=== PATIENT | female | born 1955 | race Caucasian/White ===

== ENCOUNTER → 2016-06-29 | Outpatient (CLI) | payer BC | END | disposition home or self-care (01) | LOC: LABWHC1 15:29 | PROVIDERS: ATTEND Orthopaedic Surgery | DX: Z01.812 Encounter for preprocedural laboratory examination (principal) | CPT/HCPCS: 87070 ==

== ENCOUNTER 2016-07-18 08:36 | Inpatient (IN) | payer BC ==
[2016-07-11 14:20] VITALS: BMI 28.8
--- NOTE | 2016-07-17 16:00 | HP ---
DATE OF ADMISSION: CHIEF COMPLAINT: Left knee pain. HISTORY OF PRESENT ILLNESS: The patient is a 60-year-old retired female who presents with progressive left knee pain secondary to osteoarthrosis despite conservative measures. He is having pain with weight-bearing activities that limit her. She has tried previous injections along with medications. PAST MEDICAL HISTORY: Significant for hypertension. CURRENT MEDICATIONS: Norvasc. She denies drug allergies. PAST SURGICAL HISTORY: Significant for previous hand surgery. FAMILY HISTORY: Significant for heart disease and cancer. SOCIAL HISTORY: Negative for current tobacco or alcohol use. Sixteen-point review of systems otherwise reviewed and is noncontributory. On examination, the patient is approximately 5 foot 7, 180 pounds of endomorphic habitus. HEENT exam is nonfocal. Neck is supple. She has painless passive motion of her left hip. Active motion left knee, -6 to 95 degrees of flexion. She is tender about the medial joint line. She has mild effusion. Collaterals are stable, Mehran's negative, Olga's is equivocal. She has genu varum alignment. Her distal neurovascular exam appears be intact in the left lower extremity. Weight-bearing notch, lateral, and merchant views of the left knee obtained in the office show severe medial and patellofemoral compartment osteoarthrosis. IMPRESSION: 1. Left knee severe medial and patellofemoral compartment osteoarthrosis. 2. Hypertension. RECOMMENDATIONS: I talked to the patient at length regarding her treatment options. At this point, she remains quite symptomatic despite conservative measures. After thorough discussion, she opts to proceed with surgery. We will plan to proceed with left total knee arthroplasty. We will institute DVT prophylaxis postoperatively. Patient underwent preoperative medical evaluation by Dr. Bojorquez.
[~2016-07-18 08:36] MED LIST: ACETAMINOPHEN TAB 500 MG TAB PO ONE; DEXAMETHASONE SOD PHOSPHATE 10 MG/ML 1 ML VIAL IV ONE; HYDROmorphone 1 MG/ML 1 ML SYRINGE IVP PRN; LIDOCAINE 1% 20 ML VIAL (10MG/ML) FOR IV START INTRADERMA PRN; MELOXICAM 7.5 MG TAB PO ONE; MIDAZOLAM 2 MG/2 ML VIAL IV PRN; ONDANSETRON 4 MG/2 ML VIAL IVP ONE; SCOPOLAMINE 1.5MG/72HR PATCH TRANSDERM ONE; TRANEXAMIC ACID 1,000 MG in SODIUM CHLORIDE 0.9% 100 ML IVPB ONE; ceFAZolin 2 GM in SODIUM CHLORIDE 0.9% 100 ML IVPB ONE; fentaNYL (PF) 50 MCG/ML 20 ML VIAL IVP PRN
[2016-07-18] MEDS: LACTATED RINGERS 1,000 ML IV SCH ×2 (09:24→21:16)
[2016-07-18] MEDS ORDERED: ROPIVACAINE 246.25 MG, EPINEPHrine 0.5 MG, KETOROLAC 30 MG, cloNIDine HCL/PF 80 MCG, WA... MISCELLANE ONE ×5 (10:18)
[2016-07-18] MEDS ORDERED: fentaNYL (PF) 50 MCG/ML 2 ML AMP ONE (10:25)
[2016-07-18] MEDS ORDERED: PHENYLEPHRINE-0.9% NACL SYG 1 MG/10 ML SYRINGE ONE (10:25)
[2016-07-18] MEDS ORDERED: MIDAZOLAM 2 MG/2 ML VIAL ONE (10:25)
[2016-07-18] MEDS ORDERED: PROPOFOL 10 MG/ML 20 ML VIAL IV ONE (10:25)
[2016-07-18] MEDS ORDERED: SODIUM CHLORIDE 0.9% 100 ML BAG ONE (10:25)
[2016-07-18] MEDS ORDERED: ceFAZolin 3,000 MG in SODIUM CHLORIDE 0.9% IRRIGATIO 3,000 ML IRRIGATION ONE (10:25)
[2016-07-18] MEDS ORDERED: TRANEXAMIC ACID 1,000 MG/10 ML VIAL ONE (10:25)
[2016-07-18] MEDS ORDERED: LACTATED RINGERS 1,000 ML IV ONE (11:30)
[2016-07-18] MEDS ORDERED: HYDROmorphone 1 MG/ML 1 ML SYRINGE IVP PRN ×2 (12:30)
[2016-07-18] MEDS ORDERED: HYDROcodone/APAP 5-325MG 1 EACH TAB PO PRN ×2 (12:30)
[2016-07-18] MEDS ORDERED: MAGNESIUM HYDROXIDE 2,400 MG/10 ML CUP PO PRN (12:30)
[2016-07-18] MEDS ORDERED: NALOXONE 0.4 MG/ML 1 ML VIAL IV PRN (12:30)
[2016-07-18] MEDS ORDERED: ONDANSETRON 4 MG/2 ML VIAL IVP PRN (12:30)
[2016-07-18] MEDS ORDERED: hydrOXYzine PAMOATE 25 MG CAP PO PRN (12:30)
--- NOTE | 2016-07-18 12:59 | P.OP ---
Date of Procedure: 07/18/16 Preoperative Diagnosis: Severe left knee tricompartmental osteoarthrosis-primary Postoperative Diagnosis: Same Procedure(s) Performed: Left total knee arthroplastycemented/posterior stabilized Implants: Depuy Attune size 7 cemented posterior stabilized femoral component, size 6 cemented tibial component, 10 mm articular surface, 35 mm cemented patellar component. Anesthesia: regional, local, spinal Surgeon: Kyler Altamirano Sales Account Director #1: Bruce Clark Estimated Blood Loss (ml): 75 Pathology: other (Bone fragments) Condition: stable Disposition: PACU Indications for Procedure: The patient's a 60-year-old female who presents with progressive left knee pain secondary to osteoarthrosis despite conservative measures. A discussion of the risks and benefits of operative intervention versus continued conservative measures was made with the patient. She opted to proceed with surgery. Operative risks to include infection, neurovascular injury, development of blood clots, possible component loosening, possible component failure need for subsequent procedures was discussed. Informed consent was obtained. Operative Findings: As below Description of Procedure: The patient was brought to the operating room, and after induction of spinal anesthesia the left lower extremity was prepped and draped in a normal fashion. The tourniquet was inflated to 270 mmHg. A longitudinal incision extending 3 finger breaths above the superior pole of patella extending to the medial aspect the tibial tubercle was then made. The skin and subcu tissues were divided sharply. Electrocautery was used for hemostasis. A medial parapatellar arthrotomy was performed. The medial soft tissues to include the superficial and deep portions the medial collateral ligament as well as the medial hamstring tendons were elevated subperiosteally. The proximal medial tibial osteophytes were carefully removed. The posterior medial capsule was also elevated. The patella was everted. The knee was then flexed. A portion of the retropatellar fat pad was excised sharply. The anterior cruciate ligament was sacrificed. A starting hole was made in the distal femur 1 cm anterior to the posterior cruciate ligament origin. An intramedullary femoral guide was then gently inserted planning on 5 valgus distal cut with 9 mm distal resection. The cutting block was pinned in place. The distal cut was then made. The posterior referencing sizing guide was utilized. A felt size 7 was most appropriate. 3 of external rotation was built into the system and verified off the trans-epicondylar axis and the posterior condyles. The cutting block was pinned in place. The anterior, posterior, and chamfer cuts were made. The bone fragments were then removed. I planned on a posterior stabilized implant as she did have significant deformity. The box cut was then made with a reciprocating saw. The bone fragment was removed. The trial femoral component was placed and was fully seated. There is good anterior to posterior and medial to lateral fit. The distal peg holes were drilled. The trial component was then removed. Attention was then paid towards preparing the proximal tibia. An extra medullary guide was then utilized in line with the tibial shaft and second metatarsal distally. I utilized a 0 posterior slope cutting block. I planned on 1 mm resection from the medial compartment. The cutting block was pinned in place. The proximal tibial cut was made protecting the posterior soft tissues. The bone was removed in one fragment. The tibia sized most appropriate size 6. The trial femoral and tibial components were placed. I was tight medially, therefore soft tissues were elevated posterior and medially. I did piecrust a portion of the medial collateral ligament. The trial femoral and tibial components were then placed with a 10 mm articular surface. I was able to obtain full flexion and extension with good stability with varus and valgus stress. After several flexion and extension cycles the tibial rotation was marked in line with the medial one third of the tibial tubercle. Attention was then paid towards preparing the patella. A patella reamer was utilized taking this down to 14 mm of bone stock. A good flush cut was made. The patella sized most probably a 35 mm. The peg holes were drilled. The trial components placed. The knee was taken through range of motion. I had good patellofemoral tracking with no hands technique. The trial components were then removed. The flexion and extension gaps were checked and felt to be symmetric. The tibia was prepared in the appropriate rotation with appropriate drill and keel punch. The posterior osteophytes of the distal femur were carefully removed with a curved osteotome. The remnants the medial lateral menisci were excised at the capsular junction with electrocautery. The posterior soft tissues were then injected with ropivacaine. Several additional drill holes were made in the proximal medial tibia to facilitate cement interdigitation. The bony surfaces were prepared with pulsatile lavage and dried. The tibial component was then cemented in place and was fully seated. Excess cement was removed. The femoral component was cemented in placed and was fully seated. Excess cement was removed. The trial 10 mm articular surface was placed and the knee was put in full extension. The patella component was cemented in place and excess cement was removed. After the cement had sufficiently hardened, the knee was again taken through range of motion. Again I was able to obtain full flexion and extension with good stability with varus and valgus stress. The trial articular surface was removed and the final one inserted. This was fully seated. Care was taken to avoid any soft tissue interposition. Pulsatile lavage was again utilized. The medial parapatellar arthrotomy was closed with # 2 Ethibond suture. A deep drain was placed exiting laterally. The tourniquet was deflated with approximately 80 minutes total tourniquet time. Final hemostasis was obtained with electrocautery. The subcutaneous tissues were reapproximated with interrupted 2-0 Vicryl sutures. The skin was reapproximated with 3-0 subcuticular strata fix suture. Skin tape and adhesive was applied. A sterile dressing was applied. The patient was awoken from sedation and transferred to the recovery room in good condition. Blood loss was estimated at 75 mL. No complications were incurred. Sponge and needle counts were correct at the end the case.
[2016-07-18] MEDS ORDERED: ROPIVACAINE 1,100 MG, SODIUM CHLORIDE 0.9% 330 ML MISCELLANE PRN ×2 (13:07)
--- NOTE | 2016-07-18 13:22 | XR ---
EXAMINATION TYPE: XR knee limited LT DATE OF EXAM: 07/18/2016 1:16 PM COMPARISON: NONE TECHNIQUE: Two view submitted HISTORY: Post op FINDINGS: There is a prosthetic knee in near anatomic alignment. There is soft tissue edema and emphysema. Toscano rgical drain noted. IMPRESSION: 1. Postoperative change. Appears in near-anatomic alignment
--- NOTE | 2016-07-18 13:29 | P.ONQ ---
Anesthesiology Proc Note - PNB - Peripheral Nerve Block Performed Left Adductor Canal Infusion Time Out Performed: Yes Procedure Start Time: 09:47 Procedure Stop Time: 10:00 Indication: Acute Post-Operative Pain, Requested by physician Sedation Type: Sedate with meaningful contact maintained Preparation: Sterile Dressing Position: Supine Catheter: Indwelling Needle Types: Other (see comment) (pajunk) Needle Size: 100mm (4") Needle Gauge: 21 Technique: Ultrasound Injectate: 0.5% Ropivacaine (see comment for volume) (ropi.5% 20cc) Blood Aspirated: No Pain Paresthesia on Injection Noted: No Resistance on Injection: Normal Events: Uneventful and Well Tolerated
[2016-07-18] MEDS: traMADol 50 MG TAB PO SCH ×3 (13:45→21:17)
--- NOTE | 2016-07-18 14:52 | P.CONS ---
History of Present Illness - Reason for Consult Consult date: 07/18/16 Medical management Requesting physician: Kyler Altamiraon - Chief Complaint Post left total knee arthroplasty - History of Present Illness This is a 60-year-old female one of Dr. 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 Patient sitting up in bed in no apparent distress she denies any chest pain, shortness breath, she has no abdominal pain, nausea, vomiting, or diarrhea. Review of Systems Constitutional: Denies anorexia, Denies chronic headaches, Denies chronic pain, Denies fever, Denies lethargy, Denies sweats, Denies weakness, Denies weight gain Eyes: denies blurred vision, denies bulging eye, denies decreased vision Ears: deny: decreased hearing Ears, nose, mouth and throat: Denies dysphagia, Denies neck lump, Denies swelling in throat Breasts: absent: change in shape Cardiovascular: Reports high blood pressure, Denies chest pain, Denies decreased exercise tolerance, Denies dyspnea on exertion, Denies phlebitis, Denies rapid heart beat, Denies shortness of breath Respiratory: Denies congestion, Denies dyspnea, Denies hemoptysis, Denies home oxygen, Denies sleep apnea, Denies snoring, Denies wheezing Gastrointestinal: Denies abdominal pain, Denies BRBPR, Denies change in bowel habits, Denies hematemesis, Denies melena, Denies nausea, Denies vomiting Genitourinary: Denies dysuria Menstruation: Reports postmenopausal Musculoskeletal: Denies myalgias Musculoskeletal: left: knee pain, knee stiffness, knee swelling, absent: ankle pain, ankle stiffness, ankle swelling, elbow pain, elbow stiffness, elbow swelling, foot pain, foot stiffness, foot swelling, hand pain, hand stiffness, hand swelling, hip pain, hip stiffness, hip swelling, shoulder pain, shoulder stiffness, shoulder swelling, wrist pain, wrist stiffness, wrist swelling Integumentary: Denies pruritus, Denies rash Neurological: Denies numbness, Denies weakness Psychiatric: Denies anxiety, Denies depression Endocrine: Denies fatigue, Denies weight change Past Medical History Past Medical History: Hypertension, Osteoarthritis (OA) History of Any Multi-Drug Resistant Organisms: None Reported Past Surgical History: Adenoidectomy, Orthopedic Surgery, Tonsillectomy Additional Past Surgical History / Comment(s): D & C. RT HAND SX Past Anesthesia/Blood Transfusion Reactions: No Reported Reaction Past Psychological History: No Psychological Hx Reported Smoking Status: Never smoker Past Alcohol Use History: Occasional Past Drug Use History: None Reported - Past Family History Mother Family Medical History: No Reported History (Mother at age 62 from motor vehicle accident.) Father Family Medical History: Coronary Artery Disease (CAD), Myocardial Infarction (PA ) (Father at age of 63 from PA.) Brother(s) Family Medical History: Myocardial Infarction (PA) (Patient had one brother who at age of 49 from a massive PA while he was playing basketball.) Son(s) Family Medical History: No Reported History (Patient has one son no major medical problems) Daughter(s) Family Medical History: No Reported History (Patient has one daughter no major medical problems.) Medications and Allergies Home Medications Medication Instructions Recorded Confirmed Type amLODIPine BESYLATE [Norvasc] 5 mg PO DAILY 07/11/16 07/18/16 History Allergies Allergy/AdvReac Type Severity Reaction Status Date / Time No Known Allergies Allergy Verified 07/18/16 09:08 Physical Exam Vitals: Vital Signs Temp Pulse Pulse Resp BP Pulse Ox 07/18/16 13:33 62 18 135/74 96 07/18/16 13:15 61 16 135/75 93 L 07/18/16 13:00 84 18 156/81 97 07/18/16 12:49 99.5 F 89 16 169/81 97 07/18/16 09:08 98.2 F 74 16 159/90 98 Intake and Output 07/17/16 07/18/16 07/18/16 22:59 06:59 14:59 Intake Total 1701 Output Total 975 Balance 726 Intake: IV 1701 Output: Urine 900 Estimated Blood Loss 75 - Constitutional General appearance: average body habitus, no acute distress - EENT Eyes: anicteric sclerae, EOMI, PERRLA, no ptosis, no scleral icterus, normal appearance ENT: hearing grossly normal, NA/AT, normal oropharynx, no thrush Ears: bilateral: normal - Neck Neck: no lymphadenopathy, normal ROM, no rigidity, no stridor, no thyromegaly Carotids: bilateral: upstroke normal Thyroid: bilateral: normal size - Respiratory Respiratory: bilateral: diminished, negative: dullness, rales, rhonchi, wheezing , prolonged expiration, prolonged inspiration - Cardiovascular Rhythm: regular Heart sounds: normal: S1, S2 Abnormal Heart Sounds: no systolic murmur, no S3 Gallop, no S4 Gallop - Gastrointestinal General gastrointestinal: normal bowel sounds, soft, no splenomegaly, no tenderness, no umbilical hernia, no ventral hernia - Integumentary Integumentary: normal, normal turgor - Neurologic Neurologic: CNII-XII intact - Musculoskeletal Musculoskeletal: strength equal bilaterally - Psychiatric Psychiatric: A&O x's 3, appropriate affect, intact judgment & insight Assessment and Plan Plan: Assessment and plan: 1. Post operative day #0 status post left total knee arthroplasty. Patient was instructed to use the incentive spirometer to reduce the incidence of atelectasis and hospital-acquired pneumonia, DVT prophylaxis as outlined by orthopedic surgery, pain management as outlined by orthopedic surgery as well, patient will be seen by physical therapy tomorrow morning, Bower catheter will be removed tomorrow morning. 2. Hypertension and hypertensive cardiovascular disease. Resume amlodipine 5 mg orally once every day. 3. Osteoarthritis. Continue current pain management. 4. DVT prophylaxis. Xarelto 10 mg orally once every day for 12 days. 5. GI prophylaxis. Continue PPI. 6. Thank you Dr. Altamirano for the consult we will follow with you
[2016-07-18] MEDS: ceFAZolin 2 GM in SODIUM CHLORIDE 0.9% 100 ML IVPB SCH (17:02)
[2016-07-18] MEDS ORDERED: SENNOSIDES-DOCUSATE SODIUM 1 EACH TAB PO SCH (21:00)
[2016-07-19] MEDS: ceFAZolin 2 GM in SODIUM CHLORIDE 0.9% 100 ML IVPB SCH (03:04)
[2016-07-19 08:29] LABS: Basophils % (A) 0 %; CH 29.4; CHCM 32.9; Eosinophils % (A) 0 %; HCT 31.6 % (34.0-46.0); HDW 2.13; Luc # (Auto) 0.12; Luc % (Auto) 1; Lymphocytes % (A) 10 %; MCH 29.9 pg (25.0-35.0); MCHC 33.2 g/dL (31.0-37.0); MCV 89.8 fL (80.0-100.0); Mean Platelet Volume 7.4; Monocytes # (A) 0.6 k/uL (0-1.0); Monocytes % (A) 7 %; Neutrophils # (A) 7.6 k/uL (1.3-7.7); Neutrophils % (A) 82 %; RBC 3.52 m/uL (3.80-5.40); RDW 12.6 % (11.5-15.5); WBC 9.4 k/uL (3.8-10.6); WBC (Perox) 9.87
[2016-07-19] MEDS: traMADol 50 MG TAB PO SCH ×2 (08:30→12:18)
[2016-07-19 08:34] LABS: HGB 10.5 gm/dL (11.4-16.0)
[2016-07-19] MEDS ORDERED: amLODIPine 5 MG TAB PO SCH (09:00)
[2016-07-19] MEDS ORDERED: FAMOTIDINE 20 MG TAB PO SCH (09:00)
[2016-07-19] MEDS ORDERED: RIVAROXABAN 10 MG TAB PO SCH (09:00)
--- NOTE | 2016-07-19 09:02 | P.PN ---
Progress Note - Text 07/19 815 am 60-year-old female status post total knee replacement by Dr. Correa. Patient has an On-Q pump postop pain control. Patient has 0 pain this morning. Doing very well
[2016-07-19 09:06] VITALS: BP 126/77; PULSE 64; RESP 15; TEMP 98.4
--- NOTE | 2016-07-19 12:42 | P.PN ---
Subjective Principal diagnosis: Status post left total knee arthroplasty Patient is seen today resting in her hospital bed, her family is present at bedside. She appears to be in no acute distress, her pain is well-controlled. She is done well with therapy. She denies headaches, lightheadedness, chest pain, shortness of breath. Objective - Vital Signs Vital signs: Vital Signs Temp 98.4 F 07/19/16 07:00 Pulse 64 07/19/16 07:00 Resp 15 07/19/16 07:00 BP 126/77 07/19/16 07:00 Pulse Ox 95 07/19/16 00:30 Intake & Output 07/18/16 07/19/16 07/19/16 18:59 06:59 18:59 Intake Total 2000 1000 180 Output Total 187 1350 150 Balance 126 -350 30 Weight 86.183 kg Intake: IV 2000 800 Lactated Ringers 1,000 ml 300 800 @ 50 mls/hr IV .Q20H LOLITA Rx#:[id number] Intake, IV Titration 200 Amount ceFAZolin 2 gm In Sodium 200 Chloride 0.9% 100 ml @ 100 mls/hr IVPB Q8H LOLITA Rx#:[id number] Oral 180 Output: Drainage 350 Left Knee 350 Urine 1800 1000 150 Uretheral (Bower) 1000 150 Estimated Blood Loss 75 Other: Voiding Method Indwelling Catheter Indwelling Catheter - Exam Left lower external: Incision is clean, dry and intact. There is a small amount of dried blood on the distal end incision. Minimal soft tissue swelling present. Calf soft, no tenderness with palpation. Plantar flexion, dorsiflexion, EHL, FHL are intact. Sensory exam light touch throughout the extremities intact, dorsalis pedis pulses 2+. - Labs CBC & Chem 7: 07/19/16 07:40 Labs: Abnormal Lab Results - Last 24 Hours (Table) 07/19/16 Range/Units 07:40 RBC 3.52 L (3.80-5.40) m/uL Hgb 10.5 L D (11.4-16.0) gm/dL Hct 31.6 L (34.0-46.0) % Assessment and Plan Plan: Assessment: #1. Postop day #1 status post left total knee arthroplasty Plan: 1. Pain control, continue supportive oral medications 2. GI and DVT prophylaxis, Xarelto 10 mg after discharge 3. Ice and elevate/daily dressing changes 4. Medical recommendations 5. Discharge planning: Patient will be discharged home today Time with Patient: Less than 30
--- NOTE | 2016-07-19 12:43 | P.DS ---
Providers Date of admission: 07/18/16 08:36 Expected date of discharge: 07/19/16 Attending physician: Kyler Altamirano Consults: 07/18/16 12:30 Consult Physician Routine Consulting Provider: Maurice Lizarraga Consult Reason/Comments: medical management Do you want consulting provider notified?: Yes Primary care physician: [facility] Course: Date of admission: 07/18/2016 Date of discharge: 07/19/2016 Admission diagnosis: Status post left total knee arthroplasty Discharge diagnosis: Same Attending physician: Dr. Altamirano Surgical procedures: Left total knee arthroplasty Brief history: Patient is a 60-year-old female with a history of aggressive primary left knee osteoarthritis. At this point patient has failed conservative treatment measures and has opted to proceed with a elective left total knee arthroplasty. Hospital course: Details of patient's surgery can be found in operative report. Patient tolerated the procedure well and was subsequently transported to orthopedic floor. Patient's orthopeidc and medical care was provided daily. Patient had daily laboratory tests performed for evaluation of overall blood counts. Patient had daily physical therapy to include strengthening range of motion as well as education with walker ambulation. Patient had daily CPM usage as part of their physical therapy program. Patient was treated with Xarelto for their postoperative DVT prophylaxis during their inpatient stay. Patient was noted to have a relatively uneventful postoperative course. Patient reported satisfactory pain control with oral pain medications by postoperative day 0. Patient showed satisfactory progress with physical therapy. Patient moved steadily through the program and had no difficulty meeting the goals by postoperative day 1. Given patient's otherwise satisfactory course and having met physical therapy goals, plan is to discharge patient home on postoperative day 1. Discharge condition/disposition: Patient will be discharged home in stable condition. Discharge medications: Instructions are given on resumption of patient's normal daily medications per primary care recommendation, in addition patient will be prescribed Upsala 5 mg/325 mg, tramadol 50 mg, Pepcid 20 mg, Colace 100 mg, Xarelto 10 mg. Discharge instructions: 1. Wound care and infection precautions, keep incision dry and covered while showering, no lotions, creams, moisturizers. No soaking, tubs, pools, hottubs. Do not scrub over the incision. 2. Weight-bear as tolerated with walker / cane until follow-up. 3. Ice and elevate when necessary. Do not exceed 20 minutes per hour with ice pack. 4. Utilize compression sleeve until seen at first follow up appointment. 5. Visiting nursing care. 6. Home physical therapy including home CPM. 7. Pain meds and anticoagulants per prescription. 8. Pain medication has potential to cause constipation. Increase oral fluid and fiber intake. Contact primary care provider if you have not had a bowel movement within 48 hours after discharge 9. No anti-inflammatory medication until discussed at first post operative visit, this including Motrin, Aleve, Mobic, Diclofenac. 10. Follow up in office at 2 weeks postop with Philipp Clark PA-C 11. Follow up with your primary care doctor 7-10 days after discharge. 12. Contact [facility] with any questions, . Procedures: Left total knee arthroplasty Patient Condition at Discharge: Good Plan - Discharge Summary New Discharge Prescriptions: Docusate [Colace] 100 mg PO DAILY #30 capsule Famotidine [Pepcid] 20 mg PO DAILY #30 tablet Hydrocodone/Acetaminophen [Upsala 5-325] 1 each PO Q6HR PRN #60 tab PRN Reason: Pain Rivaroxaban [Xarelto] 10 mg PO DAILY #12 tab traMADol HCl [Ultram] 50 mg PO Q6H PRN #40 tab PRN Reason: Pain Discharge Medication List amLODIPine BESYLATE [Norvasc] 5 mg PO DAILY 07/11/16 [History] Rivaroxaban [Xarelto] 10 mg PO DAILY #12 tab 07/18/16 [Rx] Docusate [Colace] 100 mg PO DAILY #30 capsule 07/19/16 [Rx] Famotidine [Pepcid] 20 mg PO DAILY #30 tablet 07/19/16 [Rx] Hydrocodone/Acetaminophen [Upsala 5-325] 1 each PO Q6HR PRN #60 tab 07/19/16 [Rx] traMADol HCl [Ultram] 50 mg PO Q6H PRN #40 tab 07/19/16 [Rx] Follow up Appointment(s)/Referral(s): Fabrizio Medrano, [NON-STAFF] - 1 Week Bruce Clark PAC [PHYSICIAN FLYER REPAIRER] - 08/02/16 2:30 pm Activity/Diet/Wound Care/Special Instructions: PT has CPM at home already Orthopedic Discharge Instructions: 1. Wound care and infection precautions, keep incision dry and covered while showering, no lotions, creams, moisturizers. No soaking, pools, hot tubs. Do not scrub over incision. 2. Weight-bear as tolerated with walker / cane until follow-up. 3. Ice and elevate when necessary. Do not exceed 20 minutes per hour with ice pack. 4. Utilize compression sleeve until seen at first follow up appointment. 5. Visiting nursing care. 6. Home physical therapy including home CPM. 7. Pain meds and anticoagulants per prescription. 8. Pain medication has potential to cause constipation. Increase oral fluid and fiber intake. Contact primary care provider if you have not had a bowel movement within 48 hours after discharge. 9. No anti-inflammatory medication until discussed at first post operative visit, this including Motrin, Aleve, Mobic, Diclofenac. 10. Follow up in office at 2 weeks postop with Philipp Clark PA-C 11. Follow up with your primary care doctor 7-10 days after discharge. 12. Contact [facility] with any questions, . Discharge Disposition: HOME WITH HOME HEALTH SERVICES
--- NOTE | 2016-07-19 14:02 | P.PN ---
Subjective This is a 60-year-old female one of Dr. 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 Patient sitting up in bed in no apparent distress she denies any chest pain, shortness breath, she has no abdominal pain, nausea, vomiting, or diarrhea. 07/19: Patient denies any new complaints. She is scheduled for discharge home today. Patient will be discharged home in stable condition. Objective - Vital Signs Vital signs: Vital Signs Temp 98.4 F 07/19/16 07:00 Pulse 64 07/19/16 07:00 Resp 15 07/19/16 07:00 BP 126/77 07/19/16 07:00 Pulse Ox 95 07/19/16 00:30 Intake & Output 07/18/16 07/19/16 07/19/16 18:59 06:59 18:59 Intake Total 2000 1000 380 Output Total 1875 1350 150 Balance 126 -350 230 Weight 86.183 kg Intake: IV 2000 800 Lactated Ringers 1,000 ml 300 800 @ 50 mls/hr IV .Q20H LOLITA Rx#:[id number] Intake, IV Titration 200 Amount ceFAZolin 2 gm In Sodium 200 Chloride 0.9% 100 ml @ 100 mls/hr IVPB Q8H LOLITA Rx#:[id number] Oral 380 Output: Drainage 350 Left Knee 350 Urine 1800 1000 150 Uretheral (Bower) 1000 150 Estimated Blood Loss 75 Other: Voiding Method Indwelling Catheter Indwelling Catheter - Exam General appearance: average body habitus, no acute distress - EENT Eyes: anicteric sclerae, EOMI, PERRLA, no ptosis, no scleral icterus, normal appearance ENT: hearing grossly normal, NA/AT, normal oropharynx, no thrush Ears: bilateral: normal - Neck Neck: no lymphadenopathy, normal ROM, no rigidity, no stridor, no thyromegaly Carotids: bilateral: upstroke normal Thyroid: bilateral: normal size - Respiratory Respiratory: bilateral: diminished, negative: dullness, rales, rhonchi, wheezing , prolonged expiration, prolonged inspiration - Cardiovascular Rhythm: regular Heart sounds: normal: S1, S2 Abnormal Heart Sounds: no systolic murmur, no S3 Gallop, no S4 Gallop - Gastrointestinal General gastrointestinal: normal bowel sounds, soft, no splenomegaly, no tenderness, no umbilical hernia, no ventral hernia - Integumentary Integumentary: normal, normal turgor - Neurologic Neurologic: CNII-XII intact - Musculoskeletal Musculoskeletal: strength equal bilaterally - Psychiatric Psychiatric: A&O x's 3, appropriate affect, intact judgment & insight - Labs CBC & Chem 7: 07/19/16 07:40 Labs: Abnormal Lab Results - Last 24 Hours (Table) 07/19/16 Range/Units 07:40 RBC 3.52 L (3.80-5.40) m/uL Hgb 10.5 L D (11.4-16.0) gm/dL Hct 31.6 L (34.0-46.0) % Assessment and Plan Plan: 1. Post operative day #1 status post left total knee arthroplasty. Patient was instructed to use the incentive spirometer to reduce the incidence of atelectasis and hospital-acquired pneumonia, DVT prophylaxis as outlined by orthopedic surgery, pain management as outlined by orthopedic surgery as well, patient will be seen by physical therapy tomorrow morning, Bower catheter will be removed tomorrow morning. 2. Hypertension and hypertensive cardiovascular disease. Resume amlodipine 5 mg orally once every day. 3. Osteoarthritis. Continue current pain management. 4. DVT prophylaxis. Xarelto 10 mg orally once every day for 12 days. 5. GI prophylaxis. Continue PPI. Discharge plan: Home with [facility] Impression and plan of care have been directed as dictated by the signing physician. Jocelin Lin nurse practitioner acting as scribe for signing physician. Cc: Dr. Byers Time with Patient: Greater than 30
== END 2016-07-19 15:17 | disposition home health service (06) | DRG 470 ==
LOC: 2ORMAIN 08:36 → 3SUR 13:01
PROVIDERS: ADMIT Orthopaedic Surgery; ATTEND Orthopaedic Surgery
PROC: 0SRD0J9 Replacement of Left Knee Joint with Synthetic Substitute, Cemented, Open Approach (ICD-10-PCS; principal; 2016-07-18 10:20)
DX: M17.12 Unilateral primary osteoarthritis, left knee (principal); I11.9 Hypertensive heart disease without heart failure; M21.162 Varus deformity, not elsewhere classified, left knee; Z79.899 Other long term (current) drug therapy; Z82.49 Family history of ischemic heart disease and other diseases of the circulatory system
CPT/HCPCS: 36415; 80051; 85025; 85610; 85730; 88300

== ENCOUNTER → 2016-10-03 | Outpatient (CLI) | payer BC ==
[2016-10-03 19:17] LABS: Blood Urea Nitrogen 17 mg/dL (7-17); Non-African American GFR(MDRD) >60 (>60 ml/min/1.73 sqM)
== END | disposition home or self-care (01) ==
LOC: MMGSC 10:08
PROVIDERS: ATTEND Family Medicine
DX: I72.8 Aneurysm of other specified arteries (principal)
CPT/HCPCS: 36415; 82565; 84520

== ENCOUNTER → 2016-10-10 | Outpatient (CLI) | payer BC ==
--- NOTE | 2016-10-10 21:35 | CT ---
EXAMINATION TYPE: CT angio abdomen DATE OF EXAM: 10/10/2016 COMPARISON: NONE HISTORY: Splenic artery aneurysm. CT DLP: 594.00 mGycm CONTRAST: CTA abdominal aorta with 3-D reconstruction is performed and without and with IV Contrast, patient i njected with 100 mL of Omnipaque 300. Contrast CTA of the abdominal aorta was performed from the lung apex through the base of the pelvis. 3-D reconstruction imaging obtained at a separate workstation. CONTRAST CT ABDOMEN AND PELVIS ABDOMENAL AORTA: No evidence for abdominal aortic aneurysm. No dissection. Iliac vessels are symmet maurice and patent. Branch vessels are patent. There is no evidence for splenic artery aneurysm. LIVER/GB- No significant abnormality is seen. PANCREAS- No significant abnormality is seen. SPLEEN-cystic mass within the upper pole of the spleen with a shell calcification measures approximat rosibel 3.7 x 3.7 cm. ADRENALS- No significant abnormality is seen. KIDNEYS/BLADDER- No significant abnormality is seen. BOWEL- No Significant abnormality GENITAL ORGANS: No gross abnormality seen. LYMPH NODES- No greater than 1cm abdominal or pelvic lymph nodes areappreciated. OSSEOUS STRUCTURES-degenerative changes of the lumbar spine. OTHER- No significant abnormality is seen. IMPRESSION- 1. No evidence of splenic artery aneurysm or abdominal aortic aneurysm. 2. Nonspecific cystic mass within the upper pole of the spleen now show calcification may be postinfe ctious or posttraumatic in nature.
== END | disposition home or self-care (01) ==
LOC: RADCTMAIN 18:11
PROVIDERS: ATTEND Family Medicine
DX: D73.89 Other diseases of spleen (principal); R16.1 Splenomegaly, not elsewhere classified
CPT/HCPCS: 74175; Q9967

== ENCOUNTER → 2017-06-13 | Outpatient (CLI) | payer BC ==
--- NOTE | 2017-06-14 10:12 | MM ---
Reason for exam: screening (asymptomatic). History: Patient is postmenopausal. Physical Findings: A clinical breast exam by your physician is recommended on an annual basis and results should be correlated with mammographic findings. MG 3D Screening Mammo W/Cad Bilateral CC and MLO view(s) were taken. There are scattered fibroglandular densities. Finding: There are typically benign round calcifications in both breasts. There is no discrete abnormality. ASSESSMENT: Benign, BI-RAD 2 RECOMMENDATION: Routine screening mammogram of both breasts in 1 year.
== END | disposition home or self-care (01) ==
LOC: RADMAMWWP 16:19
PROVIDERS: ATTEND Family Medicine
DX: Z12.31 Encounter for screening mammogram for malignant neoplasm of breast (principal)
CPT/HCPCS: 77063; 77067

== ENCOUNTER 2017-07-27 09:28 | Day surgery (SDC) | payer BC ==
[2017-07-25 18:02] VITALS: BMI 31.3
[~2017-07-27 09:28] MED LIST changes: -ACETAMINOPHEN TAB 500 MG TAB PO ONE; -DEXAMETHASONE SOD PHOSPHATE 10 MG/ML 1 ML VIAL IV ONE; -HYDROmorphone 1 MG/ML 1 ML SYRINGE IVP PRN; +LACTATED RINGERS 1,000 ML IV SCH; -LIDOCAINE 1% 20 ML VIAL (10MG/ML) FOR IV START INTRADERMA PRN; -MELOXICAM 7.5 MG TAB PO ONE; -MIDAZOLAM 2 MG/2 ML VIAL IV PRN; -ONDANSETRON 4 MG/2 ML VIAL IVP ONE; -SCOPOLAMINE 1.5MG/72HR PATCH TRANSDERM ONE; -TRANEXAMIC ACID 1,000 MG in SODIUM CHLORIDE 0.9% 100 ML IVPB ONE; -ceFAZolin 2 GM in SODIUM CHLORIDE 0.9% 100 ML IVPB ONE; -fentaNYL (PF) 50 MCG/ML 20 ML VIAL IVP PRN
[2017-07-27 10:37] VITALS: RESP 16; TEMP 98
[2017-07-27] MEDS ORDERED: LIDOCAINE 1% 20 ML VIAL (10MG/ML) FOR IV START INTRADERMA ONE (10:43)
[2017-07-27] MEDS ORDERED: PROPOFOL 10 MG/ML 20 ML VIAL IV ONE (11:12)
--- NOTE | 2017-07-27 11:28 | P.PCN ---
Date of Procedure: 07/27/17 Procedure(s) Performed: BRIEF HISTORY: Patient is a 61-year-old pleasant female, scheduled for an elective colonoscopy as a part of screening for colorectal neoplasia. PROCEDURE PERFORMED: Colonoscopy. PREOPERATIVE DIAGNOSIS: Screening for colon cancer. IV sedation per Anesthesia. PROCEDURE: After informed consent was obtained, the patient, was brought into the endoscopy unit. IV sedation was administered by Anesthesia under continuous monitoring. Digital rectal examination was normal. Initially the Olympus CF- 160 flexible video colonoscope was then inserted in the rectum, gradually advanced into the cecum without any difficulty. Careful examination was performed as the scope was gradually being withdrawn. Ileocecal valve and the appendiceal orifice were visualized and appeared normal. Prep was excellent. Mucosa of the cecum, ascending colon, transverse colon, descending colon, sigmoid colon, and rectum appeared normal. Scattered sigmoid diverticula seen. Retroflexion was performed in the rectum and no lesions were seen. The patient tolerated the procedure well. IMPRESSION: Normal-appearing colon from rectum to cecum with no evidence of choledochal neoplasia Scattered sigmoid diverticulosis. RECOMMENDATIONS: Findings of this examination were discussed with the patient as well as a family. She was advised to have a repeat scanning colonoscopy in 10 years.
[2017-07-27 12:07] VITALS: BP 144/81; PULSE 69
== END 2017-07-27 12:24 | disposition home or self-care (01) ==
LOC: ORWHC2ENDO 09:28
PROVIDERS: ATTEND Internal Medicine Gastroenterology
DX: Z12.11 Encounter for screening for malignant neoplasm of colon (principal); K57.30 Diverticulosis of large intestine without perforation or abscess without bleeding; I10 Essential (primary) hypertension; Z79.899 Other long term (current) drug therapy
CPT/HCPCS: J2704; G0121; 45378

== ENCOUNTER → 2018-06-04 | Outpatient (CLI) | payer BC ==
[2018-06-04 15:16] LABS: Basophils % (A) 1 %; Eosinophils # (A) 0.1 k/uL (0-0.7); Eosinophils % (A) 2 %; HCT 40.6 % (34.0-46.0); HGB 13.6 gm/dL (11.4-16.0); Lymphocytes # (A) 1.5 k/uL (1.0-4.8); Lymphocytes % (A) 24 %; MCHC 33.4 g/dL (31.0-37.0); MCV 89.8 fL (80.0-100.0); Mean Platelet Volume 7.6; Monocytes # (A) 0.4 k/uL (0-1.0); Monocytes % (A) 6 %; Neutrophils # (A) 4.2 k/uL (1.3-7.7); Neutrophils % (A) 66 %; Platelet Count 259 k/uL (150-450); RBC 4.52 m/uL (3.80-5.40); RDW 13.2 % (11.5-15.5); WBC 6.4 k/uL (3.8-10.6)
[2018-06-04 15:18] LABS: Prothrombin Time 10.4 sec (9.0-12.0)
--- NOTE | 2018-06-04 15:26 | XR ---
EXAMINATION TYPE: XR chest 2V DATE OF EXAM: 06/04/2018 COMPARISON: NONE TECHNIQUE: PA and lateral views submitted. HISTORY: Presurgical FINDINGS: The lungs are clear and there is no pneumothorax, pleural effusion, or focal pneumonia. Heart size at the upper limits of normal. There is sclerosis involving the head of the left humerus which could be superficial. Large calcification involving the left upper quadrant measuring 3.6 cm. Hypertrophic change of the vertebral column. IMPRESSION: 1. No acute intrathoracic process. 2. Large 3.6 cm calcification left upper abdomen could be related to splenic artery aneurysm and coul d be correlated with CT scan as clinically warranted.
== END ==
LOC: LABPAT 14:27
PROVIDERS: ATTEND Orthopaedic Surgery
DX: Z01.818 Encounter for other preprocedural examination (principal); Z01.812 Encounter for preprocedural laboratory examination; M17.12 Unilateral primary osteoarthritis, left knee
CPT/HCPCS: 36415; 71046; 80051; 85025; 85610; 87070; 93005

== ENCOUNTER 2018-06-18 09:18 | Inpatient (IN) | payer BC ==
--- NOTE | 2018-06-17 08:56 | HP ---
HISTORY AND PHYSICAL CHIEF COMPLAINT: Right knee pain. HISTORY OF PRESENT ILLNESS: Patient is a 62-year-old retired female who presents with progressive right knee pain, worsening over the past several years. She has tried medications along with injections with only partial temporary relief. She notes the pain limits her normal function and activities. PAST MEDICAL HISTORY: Significant for arthritis and hypertension. PAST SURGICAL HISTORY: Significant for left knee arthroplasty in addition to previous hand surgery. CURRENT MEDICATIONS: 1. Lotrel. 2. Aleve. She denies drug allergies. FAMILY HISTORY: Significant for heart disease and cancer. SOCIAL HISTORY: Negative for current tobacco or alcohol use. 16 POINT REVIEW OF SYSTEMS: Otherwise reviewed and is noncontributory. PHYSICAL EXAMINATION: Patient is approximately 5 foot 7, 195 pounds of endomorphic habitus. HEENT exam is nonfocal. Neck is supple. She has painless passive motion of the right hip. Straight leg raise is negative, active motion right knee -14 degrees full extension to 105 degrees of flexion. She is tender about the medial joint line. She has a mild effusion. Collaterals are stable, Mehran is negative, Olga's is equivocal. She has genu varum alignment. Her distal neurovascular exam appears intact in the right lower extremity. Previous weightbearing notch lateral and Merchant views of the right knee obtained in the office show severe medial and patellofemoral compartment osteoarthrosis. IMPRESSION: 1. Right knee severe medial and patellofemoral compartment osteoarthrosis. 2. Increased body mass index of 30.54. 3. History of hypertension. RECOMMENDATIONS: I talked to the patient at length regarding her condition and treatment options. At this point, she is quite symptomatic and limited because of pain related to her osteoarthrosis. She opts to proceed with surgery. We will plan to proceed with right total knee arthroplasty. We will institute DVT prophylaxis postoperatively. The patient underwent preoperative medical evaluation by Dr. Byers. MMJANINEL / IJN: [id number] /
[~2018-06-18 09:18] MED LIST changes: +ACETAMINOPHEN TAB 500 MG TAB PO ONE; +DEXAMETHASONE SOD PHOSPHATE 10 MG/ML 1 ML VIAL IV ONE; -LACTATED RINGERS 1,000 ML IV SCH; +LIDOCAINE 1% 20 ML VIAL (10MG/ML) FOR IV START INTRADERMA PRN; +MELOXICAM 7.5 MG TAB PO ONE; +MIDAZOLAM 2 MG/2 ML VIAL IV PRN; +ONDANSETRON 4 MG/2 ML VIAL IVP ONE; +SCOPOLAMINE 1.5MG/72HR PATCH TRANSDERM ONE; +TRANEXAMIC ACID 1,000 MG in SODIUM CHLORIDE 0.9% 100 ML IVPB ONE; +ceFAZolin IN SWFI 2 GM/20 ML SYRINGE IVP ONE
[2018-06-18] MEDS ORDERED: ROPIVACAINE 246.25 MG, EPINEPHrine 0.5 MG, KETOROLAC 30 MG, cloNIDine HCL/PF 80 MCG, WA... MISCELLANE ONE ×5 (09:53)
[2018-06-18] MEDS: LACTATED RINGERS 1,000 ML IV SCH (10:17)
[2018-06-18] MEDS ORDERED: TRANEXAMIC ACID 1,000 MG/10 ML VIAL ONE (11:02)
[2018-06-18] MEDS ORDERED: SODIUM CHLORIDE 0.9% 100 ML BAG ONE (11:02)
[2018-06-18] MEDS ORDERED: MIDAZOLAM 2 MG/2 ML VIAL ONE (11:02)
[2018-06-18] MEDS ORDERED: KETOROLAC 30 MG/ML 1 ML VIAL ONE (11:02)
[2018-06-18] MEDS ORDERED: PROPOFOL 10 MG/ML 20 ML VIAL IV ONE (11:02)
[2018-06-18] MEDS ORDERED: ceFAZolin 3,000 MG in SODIUM CHLORIDE 0.9% IRRIGATIO 3,000 ML IRRIGATION ONE (11:26)
[2018-06-18] MEDS ORDERED: LACTATED RINGERS 1,000 ML IV ONE (11:46)
[2018-06-18] MEDS ORDERED: HYDROmorphone 0.5 MG/0.5 ML SYRINGE IVP PRN (12:46)
[2018-06-18] MEDS ORDERED: ONDANSETRON 4 MG/2 ML VIAL IVP PRN (12:46)
[2018-06-18] MEDS ORDERED: NALOXONE 0.4 MG/ML 1 ML VIAL IV PRN (12:46)
[2018-06-18] MEDS ORDERED: MAGNESIUM HYDROXIDE 2,400 MG/10 ML CUP PO PRN (12:46)
[2018-06-18] MEDS ORDERED: ACETAMINOPHEN TAB 325 MG TAB PO PRN (12:46)
[2018-06-18] MEDS ORDERED: HYDROcodone/APAP 5-325MG 1 EACH TAB PO PRN ×2 (12:46)
[2018-06-18] MEDS ORDERED: HYDROmorphone 1 MG/ML 1 ML SYRINGE IVP PRN (12:46)
--- NOTE | 2018-06-18 13:11 | P.OP ---
Date of Procedure: 06/18/18 Preoperative Diagnosis: Right knee severe tricompartmental osteoarthrosis Postoperative Diagnosis: Same Procedure(s) Performed: Right total knee arthroplastycementedposterior stabilized Implants: Depuy Attune size 7 cemented femoral component, size 7 cemented tibial component , 10 mm articular surface, 35 mm cemented patellar component. This is a posterior stabilized implant. Anesthesia: regional, local, spinal Surgeon: Kyler Altamirano Operations Clerk #1: Bruce Clark Estimated Blood Loss (ml): 50 Pathology: other (Bone fragments) Condition: stable Disposition: PACU Indications for Procedure: The patient's a 62-year-old female who presents with progressive right knee pain secondary to osteoarthrosis despite conservative measures. A discussion of the risks and benefits of operative intervention versus continued conservative measures was made with the patient. She opted to proceed with surgery. Operative risks to include infection, neurovascular injury, development of blood clots, possible fracture, possible component loosening, and possible need for subsequent procedures was discussed. Informed consent was obtained. Operative Findings: As below Description of Procedure: The patient was brought to the operating room, and after induction of spinal anesthesia the right lower extremity was prepped and draped in a normal fashion. The tourniquet was inflated to 270 mm marker. A longitudinal incision extending 3 finger breaths above the superior pole of patella extending to the medial aspect the tibial tubercle was then made. The skin and subcutaneous tissues were divided sharply. Electrocautery was used for hemostasis. A medial parapatellar arthrotomy was performed. The medial soft tissues to include the superficial and deep portions of the medial collateral ligament were elevated subperiosteally. The patella was everted. A portion of the retropatellar fat pad was excised sharply. The anterior cruciate ligament was sacrificed. Blunt retractors were placed. A starting hole was made in the distal femur 1 cm anterior to the posterior cruciate ligament origin. An intramedullary femoral guide was then inserted planning on 5 valgus distal cut with 9 mm distal resection. The cutting block was pinned in place. The distal cut was then made. The posterior referencing sizing guide was utilized. I felt size 7 was most appropriate. 3 of external rotation was built into the system and verified off the trans-epicondylar axis and the posterior condyles. The cutting block was pinned in place. The anterior, posterior, and chamfer cuts then made. Bone fragments were removed. The intercondylar guide was placed and the notch cut was made with a sagittal saw. The bone block was removed in one fragment. The trial component was then placed. There is good anterior to posterior and medial to lateral fit. The distal peg holes were drilled. The trial component was removed. Attention was then paid towards preparing the proximal femur. An extra medullary guide was utilized in line with the tibial shaft and second metatarsal distally. I planned on 2 mm resection from the medial compartment. The cutting block was pinned in place. The proximal tibial cut was then made. The bone was removed in one fragment. The remnants of the medial and lateral menisci were excised at the capsular junction with electrocautery. The tibia sized most appropriately at size 7. The trial femoral and tibial components were placed along with a 9 mm articular surface. I was able to obtain full flexion and extension with internal and external rotation. After several flexion and extension cycles, the tibial rotation was marked with electrocautery line with the medial one third of the tibial tubercle. Attention was then paid towards preparing the patella. A patella reamer was utilized taking stem to 14 mm of bone stock. A good flush cut was made. The patella sized most appropriately 35 mm. The peg holes were drilled. The trial components placed. I had good patellofemoral tracking with no hands technique. The trial components were then removed. The tibia was prepared in the appropriate rotation with appropriate drill and keel punch. The posterior osteophytes were removed with a curved osteotome. The flexion and extension gaps were checked and felt to be symmetric at 10 mm. A trial components were then removed. The posterior soft tissues were injected with ropivacaine. The bony surfaces were prepared with pulsatile lavage and dried. The tibial component was then cemented place was fully seated. Excess cement was removed. The femoral component cemented place and was fully seated. Excess cement was removed. The trial 10 mm articular surface was placed and the knee was put in full extension. The patella component was cemented place. After the cement had sufficiently hardened, the knee was again taken through a range of motion. Again I was able to obtain full flexion and extension with varus and valgus stress. The trial 10 mm articular surface was removed and the final one inserted. This was fully seated. Care was taken to avoid any soft tissue interposition. Pulsatile lavage was again utilized. The medial parapatellar arthrotomy was closed with #2 Ethibond suture. The tourniquet was deflated with approximately 65 minutes total tourniquet time. Final hemostasis was obtained with the cautery. There was minimal bleeding therefore a deep drain was not placed. The subcutaneous tissues were reapproximated with interrupted 2-0 Vicryl sutures. The skin was reapproximated with 3-0 subcuticular strata fix suture. Skin tape and adhesive was applied. A sterile dressing was applied. The patient was awoken from sedation and transferred to recovery room in good condition. Blood loss was estimated at 50 mL. No complications were incurred. Sponge and needle counts were correct at the end of the case. Philipp BELL assisted during the major components of this case to include exposure, bone resection, implantation, and closure.
[2018-06-18] MEDS: HYDROmorphone 0.5 MG/0.5 ML SYRINGE IVP PRN ×2 (13:23→13:28)
[2018-06-18] MEDS ORDERED: ROPIVACAINE 1,100 MG, SODIUM CHLORIDE 0.9% 500 ML 330 ML MISCELLANE PRN ×2 (13:23)
--- NOTE | 2018-06-18 14:01 | XR ---
Limited right knee HISTORY: Status post right knee arthroplasty 2 views of the right knee Patient is status post right knee arthroplasty. There is anatomic alignment. Lucency in the soft tiss ues is compatible with postop state. IMPRESSION: Orthopedic follow-up.
[2018-06-18] MEDS: traMADol 50 MG TAB PO SCH ×3 (14:10→21:08)
--- NOTE | 2018-06-18 16:30 | P.HPIM ---
History of Present Illness H&P Date: 06/18/18 Chief Complaint: lower back pain The patient is a 62-year-old female with a past medical history of essential hypertension who is currently being postop day #0 after having a right total knee arthroplasty secondary to severe tricompartmental right knee osteoarthritis. Patient has no current complaints, she denies chest pain, she denies shortness of breath, denies headache, she denies confusion. Patient reports her pain is adequately controlled, also stated that she's been up and ambulatory to the restroom with a walker. She reports a history of having a prior left total knee arthroplasty and reports that at time her operative and postoperative course were uncomplicated. Review of Systems pertinent positives per HPI all other review of systems otherwise negative Past Medical History Past Medical History: Hypertension, Osteoarthritis (OA) History of Any Multi-Drug Resistant Organisms: None Reported Past Surgical History: Adenoidectomy, Joint Replacement, Orthopedic Surgery, Tonsillectomy Additional Past Surgical History / Comment(s): D & C, left knee replaced,right hand surg. Past Anesthesia/Blood Transfusion Reactions: No Reported Reaction Additional Past Anesthesia/Blood Transfusion Reaction / Comment(s): no hx blood transfusion Smoking Status: Never smoker - Past Family History Mother Family Medical History: Cancer Additional Family Medical History / Comment(s): mouth Father Family Medical History: Coronary Artery Disease (CAD), Myocardial Infarction ([place] ) Brother(s) Family Medical History: Myocardial Infarction ([place]) Son(s) Family Medical History: No Reported History Daughter(s) Family Medical History: No Reported History Medications and Allergies Home Medications Medication Instructions Recorded Confirmed Type Ibuprofen [Motrin] 400 mg PO Q6HR PRN 06/10/18 06/18/18 History Naproxen Sodium [Aleve] 440 mg PO BID PRN 06/10/18 06/18/18 History amLODIPine BESYLATE/BENAZEPRIL 1 cap PO DAILY 06/10/18 06/18/18 History [Lotrel 5-20 MG] Allergies Allergy/AdvReac Type Severity Reaction Status Date / Time No Known Allergies Allergy Verified 06/18/18 14:24 Physical Exam Vitals: Vital Signs Temp Pulse Pulse Resp BP BP Pulse Ox 06/18/18 14:10 80 16 140/76 99 06/18/18 13:55 66 16 140/76 99 06/18/18 13:40 70 16 140/78 99 06/18/18 13:25 84 16 127/72 99 06/18/18 13:09 97.2 F L 74 16 124/66 93 L 06/18/18 09:58 98.6 F 67 16 173/87 Intake and Output 06/18/18 06/18/18 06/18/18 06:59 14:59 22:59 Intake Total 1801 Output Total 50 Balance 1751 Intake: IV 1801 Output: Estimated Blood Loss 50 Constitutional: No acute distress, conversant, pleasant Eyes: Anicteric sclerae, moist conjunctiva, no lid-lag, PERRLA ENMT: NC/AT,Oropharynx clear, no erythema, exudates Neck:Supple, FROM, no masses, or JVD, No carotid bruits; No thyromegaly Lungs: Clear to auscultation, Clear to percussion, Normal respiratory effort, no accessory muscle use Cardiovascular: Heart regular in rate and rhythm, No murmurs, gallops, or rubs no peripheral edema Abdominal: Soft Nontender, nom distended, no guarding, no rebound or rigidity, Normoactive bowel sounds No hepatomegaly, No splenomegaly, No palpable mass No abdominal wall hernia noted Skin: Normal temperature, tone, texture, turgor, No induration No subcutaneous nodules, No rash, lesions, No ulcers Extremities: Neurovascularly intact, No calf tenderness, right any area bandaged superiorly and inferiorly, able to wiggle her toes, Psychiatric: Alert and oriented to person, place and time, Appropriate affect Intact judgement Neuro: Muscles Strength 5/5 in all 4 extremities, Sensation to light touch grossly present throughout, Cranial nerves II-XII grossly intact. No focal sensory deficits Thrombosis Risk Factor Assmnt - Choose All That Apply Each Factor Represents 1 point: Obesity (BMI >25) Other Risk Factors: Yes Each Risk Factor Represents 2 Points: Age 61-74 years, Major surgery Other congenital or acquired thrombophilia - If yes, enter type in comment: No Each Risk Factor Represents 5 Points: Elective major lower extremity arthoplasty Thrombosis Risk Factor Assessment Total Risk Factor Score: 10 Thrombosis Risk Factor Assessment Level: High Risk Assessment and Plan (1) Essential hypertension Current Visit: Yes Status: Acute Code(s): I10 - ESSENTIAL (PRIMARY) HYPERTENSION SNOMED Code(s): 95258547 (2) Knee osteoarthritis Current Visit: Yes Status: Acute Code(s): M17.10 - UNILATERAL PRIMARY OSTEOARTHRITIS, UNSPECIFIED KNEE SNOMED Code(s): 015078134 (3) History of arthroplasty of right knee Current Visit: Yes Status: Acute Code(s): Z96.651 - PRESENCE OF RIGHT ARTIFICIAL KNEE JOINT SNOMED Code(s): 459517837 Plan: The patient is admitted to the primary orthopedic orthopedic service and is postop after having a right total knee arthroplasty secondary to severe right knee osteoarthritis. Postoperative care thus far as been uncomplicated patient remains hemodynamically stable and normotensive. We'll defer pain management to the primary service, agree with perioperative antibiotics and plans to start DOAC for DVT prophylaxis. We'll monitor CBC for postoperative anemia and continue to follow her clinical course. CODE STATUS: Full code Anticipated discharge: 1-2 days
[2018-06-18 16:33] VITALS: BMI 33.1
[2018-06-18] MEDS: ceFAZolin IN SWFI 2 GM/20 ML SYRINGE IVP SCH ×2 (18:13→23:28)
[2018-06-18] MEDS ORDERED: SENNOSIDES-DOCUSATE SODIUM 1 EACH TAB PO SCH (21:00)
[2018-06-19] MEDS: LACTATED RINGERS 1,000 ML IV SCH (05:46)
[2018-06-19 06:59] VITALS: BP 126/78; PULSE 62; RESP 16; TEMP 97.6
[2018-06-19] MEDS: traMADol 50 MG TAB PO SCH (07:00)
[2018-06-19 07:55] LABS: Basophils % (A) 0 %; Eosinophils % (A) 0 %; HCT 32.2 % (34.0-46.0); HGB 10.7 gm/dL (11.4-16.0); Lymphocytes # (A) 1.3 k/uL (1.0-4.8); Lymphocytes % (A) 12 %; MCH 29.9 pg (25.0-35.0); MCHC 33.3 g/dL (31.0-37.0); MCV 89.8 fL (80.0-100.0); Mean Platelet Volume 7.6; Monocytes # (A) 0.8 k/uL (0-1.0); Monocytes % (A) 7 %; Neutrophils # (A) 8.8 k/uL (1.3-7.7); Neutrophils % (A) 79 %; Platelet Count 233 k/uL (150-450); RBC 3.58 m/uL (3.80-5.40); RDW 13.2 % (11.5-15.5); WBC 11.1 k/uL (3.8-10.6)
[2018-06-19] MEDS ORDERED: amLODIPine 5 MG TAB PO SCH (09:00)
[2018-06-19] MEDS ORDERED: LISINOPRIL 20 MG TAB PO SCH (09:00)
[2018-06-19] MEDS ORDERED: RIVAROXABAN 10 MG TAB PO SCH (09:00)
--- NOTE | 2018-06-19 09:53 | P.PN ---
Subjective Progress Note Date: 06/19/18 Principal diagnosis: right knee pain Patient is a 62-year-old female with past medical history of hypertension and osteoarthritis who presented for an elective right total knee arthroplasty. She tolerated the procedure well without any immediate postoperative complications. Patient seen and examined at bedside. She reports that her pain is well controlled. She has not been ambulating and has done well. She denies any chest pain, shortness breath, nausea, or vomiting. She has not yet had a bowel movement since surgery. Objective - Vital Signs Vital signs: Vital Signs Temp 97.6 F 06/19/18 06:58 Pulse 62 06/19/18 06:58 Resp 16 06/19/18 06:58 BP 126/78 06/19/18 06:58 Pulse Ox 97 06/19/18 07:30 Intake & Output 06/18/18 06/19/18 06/19/18 18:59 06:59 18:59 Intake Total 1801 150 Output Total 50 Balance 1751 150 Intake: IV 1801 Intake, IV Titration 150 Amount Lactated Ringers 1,000 ml 150 @ 50 mls/hr IV .Q20H [facility] Rx#:[id number] Output: Estimated Blood Loss 50 Other: Voiding Method Toilet # Voids 1 - Exam General: non toxic, no distress, appears at stated age Derm: warm, dry Head: atraumatic, normocephalic, symmetric Eyes: EOMI, no lid lag, anicteric sclera Mouth: no lip lesion, mucus membranes moist Cardiovascular: S1S2 reg, no murmur, positive posterior tibial pulse bilateral, Lungs: Decreased bs bilateral bases, no rhonchi, no rales , no accessory muscle use Abdominal: soft, nontender to palpation, no guarding, no appreciable organomegaly Ext: Dressing in place over right knee, mild right lower extremity edema no contractures Neuro: CN II-XI grossly intact, no focal neuro deficits Psych: Alert, oriented, appropriate affect - Labs CBC & Chem 7: 06/19/18 06:53 Labs: Abnormal Lab Results - Last 24 Hours (Table) 06/19/18 Range/Units 06:53 WBC 11.1 H (3.8-10.6) k/uL RBC 3.58 L (3.80-5.40) m/uL Hgb 10.7 L (11.4-16.0) gm/dL Hct 32.2 L (34.0-46.0) % Neutrophils # 8.8 H (1.3-7.7) k/uL Assessment and Plan Assessment: acute blood loss anemia, anticipated outcome of surgery - should correct with normal diet - no Fe supplements ordered as likely will add to constipation in combination with opiates HTN, controlled - resume home lotrel - follow up with PCP in 3-5 days. Arthritis - s/p R TKA - pain control - on xarelto for DVT prophylaxis Medically stale for discharge. Med rec updated and PCP follow-up placed on discharge tab. Would like [facility] on discharge.
--- NOTE | 2018-06-19 11:13 | P.PN ---
Subjective Progress Note Date: 06/19/18 Principal diagnosis: Status post right total knee arthroplasty Patient evaluated at bedside, she was resting comfortably. Denies any chest pain or shortness of breath. Denies any fevers or chills. She's ambulated well with physical therapy. Objective - Vital Signs Vital signs: Vital Signs Temp 97.6 F 06/19/18 06:58 Pulse 62 06/19/18 06:58 Resp 16 06/19/18 06:58 BP 126/78 06/19/18 06:58 Pulse Ox 97 06/19/18 07:30 Intake & Output 06/18/18 06/19/18 06/19/18 18:59 06:59 18:59 Intake Total 1801 150 Output Total 50 Balance 1751 150 Intake: IV 1801 Intake, IV Titration 150 Amount Lactated Ringers 1,000 ml 150 @ 50 mls/hr IV .Q20H [facility] Rx#:[id number] Output: Estimated Blood Loss 50 Other: Voiding Method Toilet Toilet # Voids 1 - Exam Right lower extremity: Incision is clean, dry, and intact. The exofin fusion tape is in good condition. There is minimal soft tissue swelling and ecchymosis surrounding the medial and lateral aspects of the incision. Calf is soft, no tenderness with palpation. Plantar flexion, dorsiflexion, EHL, FHL are intact. Sensory exam to light touch throughout the extremity is intact, dorsal pedis pulses 2+. - Labs CBC & Chem 7: 06/19/18 06:53 Labs: Abnormal Lab Results - Last 24 Hours (Table) 06/19/18 Range/Units 06:53 WBC 11.1 H (3.8-10.6) k/uL RBC 3.58 L (3.80-5.40) m/uL Hgb 10.7 L (11.4-16.0) gm/dL Hct 32.2 L (34.0-46.0) % Neutrophils # 8.8 H (1.3-7.7) k/uL Assessment and Plan Plan: Assessment: Postoperative day 1 status post right total knee arthroplasty Plan: Pain control, will plan for discharge on oral medication GI and DVT prophylaxis, Eliquis 2.5mg bid Wound care instructions discussed Medical recommendations Home physical therapy and nursing after discharge Discharge planning: Patient will be discharged home today Time with Patient: Less than 30
--- NOTE | 2018-06-19 11:18 | P.DS ---
Providers Date of admission: 06/18/18 09:18 Expected date of discharge: 06/19/18 Attending physician: Kyler Altamirano [facility] Course: Date of admission: 06/18/2018 Date of discharge: 06/19/2018 Admission diagnosis: Status post right total knee arthroplasty Discharge diagnosis: Same Attending physician: Dr. Altamirano Surgical procedures: Right total knee arthroplasty Brief history: Patient is a 62-year-old female with a history of progressive primary right knee osteoarthritis. At this point patient has failed conservative treatment measures and has opted to proceed with a elective right total knee arthroplasty. Hospital course: Details of patient's surgery can be found in operative report. Patient tolerated the procedure well and was subsequently transported to orthopedic floor. Patient's orthopeidc and medical care was provided daily. Patient had daily laboratory tests performed for evaluation of overall blood counts. Patient had daily physical therapy to include strengthening range of motion as well as education with walker ambulation. Patient had daily CPM usage as part of their physical therapy program. Patient was treated with Xarelto for their postoperative DVT prophylaxis during their inpatient stay. Patient was noted to have a relatively uneventful postoperative course. Patient reported satisfactory pain control with oral pain medications by postoperative day 0. Patient showed satisfactory progress with physical therapy. Patient moved steadily through the program and had no difficulty meeting the goals by postoperative day 1. Given patient's otherwise satisfactory course and having met physical therapy goals, plan is to discharge patient home on postoperative day 1. Discharge condition/disposition: Patient will be discharged home in stable condition. Discharge medications: Instructions are given on resumption of patient's normal daily medications per primary care recommendation, in addition patient will be prescribed Waller 5 mg/325 mg, tramadol 50 mg, Pepcid 20 mg, Colace 100 mg, Eliquis 2.5mg. Discharge instructions: 1. Wound care and infection precautions, keep incision dry and covered while showering, no lotions, creams, moisturizers. No soaking, tubs, pools, hottubs. Do not scrub over the incision. 2. Weight-bear as tolerated with walker / cane until follow-up. 3. Ice and elevate when necessary. Do not exceed 20 minutes per hour with ice pack. 4. Utilize compression sleeve until seen at first follow up appointment. 5. Visiting nursing care. 6. Home physical therapy including home CPM. 7. Pain meds and anticoagulants per prescription. 8. Pain medication has potential to cause constipation. Increase oral fluid and fiber intake. Contact primary care provider if you have not had a bowel movement within 48 hours after discharge 9. No anti-inflammatory medication until discussed at first post operative visit, this including Motrin, Aleve, Mobic, Diclofenac. 10. Follow up in office at 2 weeks postop with Philipp Clark PA-C 11. Follow up with your primary care doctor 7-10 days after discharge. 12. Contact [facility] with any questions, . Procedures: Right total knee arthroplasty Patient Condition at Discharge: Good Plan - Discharge Summary Discharge Rx Participant: No New Discharge Prescriptions: New Apixaban [Eliquis] 2.5 mg PO BID #30 tab Docusate [Colace] 100 mg PO DAILY #30 capsule Famotidine [Pepcid] 20 mg PO DAILY #30 tablet Hydrocodone/Acetaminophen [Waller 5-325] 1 - 2 each PO Q6HR PRN #56 tab PRN Reason: Pain traMADol HCl [Ultram] 50 mg PO Q6H PRN #28 tab PRN Reason: Pain Continue amLODIPine BESYLATE/BENAZEPRIL [Lotrel 5-20 MG] 1 cap PO DAILY Discharge Medication List amLODIPine BESYLATE/BENAZEPRIL [Lotrel 5-20 MG] 1 cap PO DAILY 06/10/18 [History] Apixaban [Eliquis] 2.5 mg PO BID #30 tab 06/19/18 [Rx] Docusate [Colace] 100 mg PO DAILY #30 capsule 06/19/18 [Rx] Famotidine [Pepcid] 20 mg PO DAILY #30 tablet 06/19/18 [Rx] Hydrocodone/Acetaminophen [Waller 5-325] 1 - 2 each PO Q6HR PRN #56 tab 06/19/18 [Rx] traMADol HCl [Ultram] 50 mg PO Q6H PRN #28 tab 06/19/18 [Rx] Follow up Appointment(s)/Referral(s): Eloise Byers MD [Primary Care Provider] - 07/19/18 1:45 pm (Please call office to try to get an earlier appointment.) Bruce Clark PAC [PHYSICIAN SHELL MOLDING ROLLER BLAST OPERATOR] - 07/03/18 3:20 pm Activity/Diet/Wound Care/Special Instructions: Orthopedic Discharge Instructions: 1. Wound care and infection precautions, keep incision dry and covered while showering, no lotions, creams, moisturizers. No soaking, pools, hot tubs. Do not scrub over incision. 2. Weight-bear as tolerated with walker / cane until follow-up. 3. Ice and elevate when necessary. Do not exceed 20 minutes per hour with ice pack. 4. Utilize compression sleeve until seen at first follow up appointment. 5. Pain meds and anticoagulants per prescription. 6. Pain medication has potential to cause constipation. Increase oral fluid and fiber intake. Contact primary care provider if you have not had a bowel movement within 48 hours after discharge. 7. No anti-inflammatory medication until discussed at first post operative visit, this including Motrin, Aleve, Mobic, Diclofenac. 8. Follow up in office at 2 weeks postop with Philipp Clark PA-C 9. Follow up with your primary care doctor 7-10 days after discharge. 10. Contact [facility] with any questions, . Discharge Disposition: HOME WITH HOME HEALTH SERVICES
--- NOTE | 2018-06-19 12:29 | P.ONQ ---
Anesthesiology Proc Note - PNB - Peripheral Nerve Block Performed Right Adductor Canal Infusion Time Out Performed: Yes Procedure Start Time: 10:22 Procedure Stop Time: 10:35 Indication: Acute Post-Operative Pain, Requested by physician Sedation Type: Sedate with meaningful contact maintained Preparation: Sterile Dressing Position: Supine Catheter: Indwelling Needle Size: 100mm (4") Needle Gauge: 21 Technique: Ultrasound (ropi .5% 20cc) Blood Aspirated: No Pain Paresthesia on Injection Noted: No Resistance on Injection: Normal Events: Uneventful and Well Tolerated
--- NOTE | 2018-06-19 12:46 | P.PN ---
Progress Note - Text 06/19 714am 62-year-old female status post total knee replacement by Dr. Altamirano. Patient hasn't On-Q pump for postop pain control with the solution running at 8 mL an hour with a VAS of 2, doing very well. Continue On-Q pump infusion
== END 2018-06-19 13:05 | disposition home health service (06) | DRG 470 ==
LOC: 2ORMAIN 09:18 → 4SSUR 13:23
PROVIDERS: ADMIT Orthopaedic Surgery; ATTEND Orthopaedic Surgery
PROC: 0SRC0J9 Replacement of Right Knee Joint with Synthetic Substitute, Cemented, Open Approach (ICD-10-PCS; principal; 2018-06-18 11:15)
DX: M17.11 Unilateral primary osteoarthritis, right knee (principal); D62 Acute posthemorrhagic anemia; I10 Essential (primary) hypertension; M54.5 Low back pain; E66.9 Obesity, unspecified; Z68.30 Body mass index [BMI] 30.0-30.9, adult; Z79.899 Other long term (current) drug therapy; Z96.652 Presence of left artificial knee joint; Z82.49 Family history of ischemic heart disease and other diseases of the circulatory system
CPT/HCPCS: 85025; 88300; 94760

== ENCOUNTER 2018-08-27 09:15 | Day surgery (SDC) | payer BC ==
[2018-08-23 14:09] VITALS: BMI 32.1
--- NOTE | 2018-08-26 09:25 | HP ---
HISTORY AND PHYSICAL CHIEF COMPLAINT: Right knee stiffness. HISTORY OF PRESENT ILLNESS: The patient is a 62-year-old retired female who underwent right total knee arthroplasty June 18, 2018, who presents with persistent stiffness despite adequate rehabilitation. She has had no fevers or chills or complicating postoperative issues. PAST MEDICAL HISTORY: Significant for arthritis. PAST SURGICAL HISTORY: Significant for right total knee arthroplasty/left total knee arthroplasty. CURRENT MEDICATIONS: Lotrel. ALLERGIES: She denies drug allergies. FAMILY HISTORY: Significant for heart disease and cancer. SOCIAL HISTORY: Negative for current tobacco or alcohol use. REVIEW OF SYSTEMS: Sixteen point review of systems otherwise reviewed and is noncontributory. PHYSICAL EXAMINATION: On examination, the patient is approximately 5 feet 7 inches, 195 pounds of endomorphic habitus. HEENT exam is nonfocal. Neck is supple. She has painless passive motion of the right hip. Straight leg raise is negative. Right knee incision is well healed. There is no warmth or erythema. Active motion right knee -8 to 85 degrees of flexion. Collaterals are stable, no real joint line tenderness noted. Homans is negative. Her distal neurovascular exam appears intact in the right lower extremity. X-rays of the right knee obtained in the office show a total knee arthroplasty with components in good position without evidence of lucencies or loosening. IMPRESSION: Status post right total knee arthroplasty with arthrofibrosis. RECOMMENDATIONS: I talked to the patient at length regarding her condition and treatment options. At this point, she opts to proceed with manipulation under anesthesia. We will start a Medrol Dosepak postoperatively as well as continuation of her therapy. The risks and benefits were discussed at length in layman's terms. We will likely perform that as an outpatient procedure utilizing IV sedation. MMODL / IJN: [id number] /
[~2018-08-27 09:15] MED LIST changes: -ACETAMINOPHEN TAB 500 MG TAB PO ONE; -LIDOCAINE 1% 20 ML VIAL (10MG/ML) FOR IV START INTRADERMA PRN; -MELOXICAM 7.5 MG TAB PO ONE; -TRANEXAMIC ACID 1,000 MG in SODIUM CHLORIDE 0.9% 100 ML IVPB ONE
[2018-08-27 09:49] VITALS: TEMP 98.8
[2018-08-27] MEDS: LACTATED RINGERS 1,000 ML IV SCH ×2 (10:03→10:13)
[2018-08-27] MEDS ORDERED: LIDOCAINE 1% 20 ML VIAL (10MG/ML) FOR IV START INTRADERMA ONE (10:03)
[2018-08-27] MEDS ORDERED: LIDOCAINE 1% INJ 10MG/ML (20 ML MDV) ONE (10:20)
[2018-08-27] MEDS ORDERED: PROPOFOL 10 MG/ML 20 ML VIAL IV ONE (10:20)
[2018-08-27] MEDS ORDERED: fentaNYL (PF) 50 MCG/ML 2 ML AMP ONE (10:20)
--- NOTE | 2018-08-27 10:31 | P.OP ---
Date of Procedure: 08/27/18 Preoperative Diagnosis: Arthrofibrosis right knee status post total knee arthroplasty Postoperative Diagnosis: Same Procedure(s) Performed: Manipulation under anesthesia right knee Anesthesia: MAC Surgeon: Kyler Altamirano Estimated Blood Loss (ml): 0 Pathology: none sent Condition: stable Disposition: PACU Indications for Procedure: The patient's a 62-year-old female who presents with persistent stiffness of her right knee after undergoing a total knee arthroplasty 8 weeks ago despite adequate rehabilitation. Discussion of the risks and benefits of manipulation under anesthesia was made with the patient. She opted to proceed. Risks of this procedure to include fracture, tendon rupture, possible recurrence of stiffness and need for subsequent procedures was discussed. Informed consent was obtained. Operative Findings: As below Description of Procedure: The patient was brought to the recovery room, and after induction of IV sedation I gently manipulated her right knee. I first obtained flexion. Moderate adhesions were encountered. I was able to achieve 125 of flexion. I then obtained full extension. Again there is some moderate adhesions. She was then monitored until fully awake. No complications were incurred.
[2018-08-27] MEDS: HYDROmorphone 0.5 MG/0.5 ML SYRINGE IVP PRN ×4 (10:39→11:02)
[2018-08-27] MEDS ORDERED: KETOROLAC 30 MG/ML 1 ML VIAL IVP ONE (10:39)
[2018-08-27 11:31] VITALS: RESP 16
[2018-08-27 11:43] VITALS: BP 159/90; PULSE 71
[2018-08-27] MEDS ORDERED: HYDROcodone/APAP 5-325MG 1 EACH TAB PO ONE (11:46)
== END 2018-08-27 12:25 | disposition home or self-care (01) ==
LOC: OR 09:15
PROVIDERS: ATTEND Orthopaedic Surgery
DX: M24.661 Ankylosis, right knee (principal); M19.90 Unspecified osteoarthritis, unspecified site; Z96.651 Presence of right artificial knee joint; Z79.52 Long term (current) use of systemic steroids; Z79.899 Other long term (current) drug therapy
CPT/HCPCS: 27570; J1100; J2405; J2001; J3010; J1885; J2704; J1170

== ENCOUNTER → 2018-10-22 | Outpatient (CLI) | payer BC ==
--- NOTE | 2018-10-23 11:26 | MM ---
Reason for exam: screening (asymptomatic). Last mammogram was performed 1 year and 4 months ago. History: Patient is postmenopausal. Physical Findings: A clinical breast exam by your physician is recommended on an annual basis and results should be correlated with mammographic findings. MG 3D Screening Mammo W/Cad Bilateral CC and MLO view(s) were taken. Prior study comparison: June 13, 2017, bilateral MG 3d screening mammo w/cad. The breast tissue is heterogeneously dense. This may lower the sensitivity of mammography. There are benign appearing round calcifications in the left breast. There is no discrete abnormality. ASSESSMENT: Benign, BI-RAD 2 RECOMMENDATION: Routine screening mammogram of both breasts in 1 year.
== END | disposition home or self-care (01) ==
LOC: RADMAMWWP 13:05
PROVIDERS: ATTEND Family Medicine
DX: Z12.31 Encounter for screening mammogram for malignant neoplasm of breast (principal)
CPT/HCPCS: 77063; 77067

== ENCOUNTER → 2019-12-18 | Outpatient (CLI) | payer MEDICARE ==
--- NOTE | 2019-12-19 10:35 | MM ---
Reason for exam: screening (asymptomatic). Last mammogram was performed 1 year and 2 months ago. History: Patient is postmenopausal. Physical Findings: A clinical breast exam by your physician is recommended on an annual basis and results should be correlated with mammographic findings. MG 3D Screening Mammo W/Cad Bilateral CC and MLO view(s) were taken. Prior study comparison: October 22, 2018, bilateral MG 3d screening mammo w/cad. June 13, 2017, bilateral MG 3d screening mammo w/cad. There are scattered fibroglandular densities. No significant changes when compared with prior studies. ASSESSMENT: Negative, BI-RAD 1 RECOMMENDATION: Routine screening mammogram of both breasts in 1 year.
== END | disposition home or self-care (01) ==
LOC: RADMAMWWP 07:09
PROVIDERS: ATTEND Family Medicine
DX: Z12.31 Encounter for screening mammogram for malignant neoplasm of breast (principal)
CPT/HCPCS: 77063; 77067

== ENCOUNTER → 2021-01-11 | Outpatient (CLI) | payer MEDICARE ==
--- NOTE | 2021-01-13 11:37 | MM ---
Reason for exam: screening (asymptomatic). Last mammogram was performed 1 year and 1 month ago. History: Patient is postmenopausal. Physical Findings: A clinical breast exam by your physician is recommended on an annual basis and results should be correlated with mammographic findings. MG 3D Screening Mammo W/Cad Bilateral CC and MLO view(s) were taken. Prior study comparison: December 18, 2019, bilateral MG 3d screening mammo w/cad. October 22, 2018, bilateral MG 3d screening mammo w/cad. No significant changes when compared with prior studies. ASSESSMENT: Benign, BI-RAD 2 RECOMMENDATION: Routine screening mammogram of both breasts in 1 year.
== END | disposition home or self-care (01) ==
LOC: RADMAMWWP 13:08
PROVIDERS: ATTEND Family Medicine
DX: Z12.31 Encounter for screening mammogram for malignant neoplasm of breast (principal)
CPT/HCPCS: 77063; 77067

== ENCOUNTER → 2022-01-12 | Outpatient (CLI) | payer MEDICARE ==
--- NOTE | 2022-01-13 07:26 | MM ---
Reason for Exam: Screening (asymptomatic). Last screening mammogram was performed 12 month(s) ago. Patient History: Menarche at age 10. First Full-Term at age 25. Postmenopausal. Risk Values: Monalisa 5 year model risk: 1.9%. NCI Lifetime model risk: 6.2%. Prior Study Comparison: 10/22/2018 Bilateral Screening Mammogram, [facility]. 12/18/2019 Bilateral Screening Mammogram, [facility]. 01/11/2021 Bilateral Screening Mammogram, [facility]. Tissue Density: The breast tissue is heterogeneously dense. This may lower the sensitivity of mammography. Findings: Analyzed By CAD. There is no suspicious group of microcalcifications or new suspicious mass in either breast. Overall Assessment: Benign, BI-RAD 2 Management: Screening Mammogram of both breasts in 1 year. A clinical breast exam by your physician is recommended on an annual basis and results should be correlated with mammographic findings. Electronically signed and approved by: Ashvin Sauer M.D. Radiologis
== END | disposition home or self-care (01) ==
LOC: RADMAMWWP 14:45
PROVIDERS: ATTEND Family Medicine
DX: Z12.31 Encounter for screening mammogram for malignant neoplasm of breast (principal)
CPT/HCPCS: 77063; 77067

== ENCOUNTER → 2023-01-16 | Outpatient (CLI) | payer MEDICARE ==
--- NOTE | 2023-01-17 08:56 | MM ---
Reason for Exam: Screening (asymptomatic). Last mammogram was performed 1 year(s) and 1 month(s) ago. Patient History: Menarche at age 10. First Full-Term at age 25. Postmenopausal. Risk Values: Monalisa 5 year model risk: 1.9%. NCI Lifetime model risk: 5.9%. Prior Study Comparison: 12/18/2019 Bilateral Screening Mammogram, [facility]. 01/11/2021 Bilateral Screening Mammogram, [facility]. 01/12/2022 Bilateral MG 3D screening mammo w/cad, [facility]. Tissue Density: The breast tissue is heterogeneously dense. This may lower the sensitivity of mammography. Findings: Analyzed By CAD. There is no suspicious group of microcalcifications or new suspicious mass. Overall Assessment: Negative, BI-RAD 1 Management: Screening Mammogram of both breasts in [address] [facility] will attempt to contact patient to return for supplemental views and ultrasound if indicated. Patient should continue monthly self-breast exams. A clinical breast exam by your physician is recommended on an annual basis. This exam should not preclude additional follow-up of suspicious palpable abnormalities. Note on Monalisa scores and lifetime risk: 1. A Monalisa score greater than 3% is considered moderate risk. If this is the case, consider specialist referral to assess eligibility for a risk reducing agent. 2. If overall lifetime risk for the development of breast cancer is 20% or higher, the patient may qualify for future screening with alternating mammogram and breast MRI. Electronically signed and approved by: John Bob DO
== END | disposition home or self-care (01) ==
LOC: RADMAMWWP 07:47
PROVIDERS: ATTEND Family Medicine
DX: Z12.31 Encounter for screening mammogram for malignant neoplasm of breast (principal); Z78.0 Asymptomatic menopausal state
CPT/HCPCS: 77063; 77067

== ENCOUNTER → 2024-01-29 | Outpatient (CLI) | payer MEDICARE ==
--- NOTE | 2024-01-30 08:01 | MM ---
Reason for Exam: Screening (asymptomatic). Last screening mammogram was performed 12 month(s) ago. Patient History: Menarche at age 10. First Full-Term at age 25. Postmenopausal. Risk Values: Monalisa 5 year model risk: 1.9%. NCI Lifetime model risk: 5.6%. Prior Study Comparison: 01/11/2021 Bilateral Screening Mammogram, [facility]. 01/12/2022 Bilateral MG 3D screening mammo w/cad, [facility]. 01/16/2023 Bilateral MG 3D screening mammo w/cad, [facility]. Tissue Density: The breasts are heterogeneously dense, which may obscure small masses. Findings: Analyzed By CAD. No suspicious grouped calcifications. Benign-appearing calcifications. There is an area of nodular density in the central and outer left breast for which spot compression views are recommended. Overall Assessment: Incomplete: need additional imaging evaluation, BI-RAD 0 Management: Diagnostic Mammogram of the left breast. . Patient should continue monthly self-breast exams. A clinical breast exam by your physician is recommended on an annual basis. This exam should not preclude additional follow-up of suspicious palpable abnormalities. Note on Monalisa scores and lifetime risk: 1. A Monalisa score greater than 3% is considered moderate risk. If this is the case, consider specialist referral to assess eligibility for a risk reducing agent. 2. If overall lifetime risk for the development of breast cancer is 20% or higher, the patient may qualify for future screening with alternating mammogram and breast MRI. [facility], , 01/30/2024 7:58 AM. Electronically signed and approved by: Moises Lucas M.D. Radiologis
== END ==
LOC: RADMAMWWP 14:32
PROVIDERS: ATTEND Family Medicine
CPT/HCPCS: 77063; 77067

== ENCOUNTER → 2024-02-06 | Outpatient (CLI) | payer MEDICARE ==
--- NOTE | 2024-02-06 13:44 | MM ---
Reason for Exam: Additional evaluation requested from prior study. Last screening mammogram was performed less than 1 month ago. Patient History: Menarche at age 10. First Full-Term at age 25. Postmenopausal. Risk Values: Monalisa 5 year model risk: 1.9%. NCI Lifetime model risk: 5.6%. Prior Study Comparison: 01/12/2022 Bilateral MG 3D screening mammo w/cad, [facility]. 01/16/2023 Bilateral MG 3D screening mammo w/cad, [facility]. 01/29/2024 Bilateral MG 3D screening mammo w/cad, [facility]. Tissue Density: Left: The breasts are heterogeneously dense, which may obscure small masses. Findings: Analyzed By CAD. There is stable chronic nodularity left breast. No evidence for mass or distortion. No suspicious calcifications present. Overall Assessment: Benign, BI-RAD 2 Management: Screening Mammogram of both breasts in 1 year. . Results were given to the patient verbally at the time of exam. Patient should continue monthly self-breast exams. A clinical breast exam by your physician is recommended on an annual basis. This exam should not preclude additional follow-up of suspicious palpable abnormalities. Note on Monalisa scores and lifetime risk: 1. A Monalisa score greater than 3% is considered moderate risk. If this is the case, consider specialist referral to assess eligibility for a risk reducing agent. 2. If overall lifetime risk for the development of breast cancer is 20% or higher, the patient may qualify for future screening with alternating mammogram and breast MRI. [facility], , 02/06/2024 1:41 PM. Electronically signed and approved by: Ashvin Sauer M.D. Radiologis
== END | disposition home or self-care (01) ==
LOC: RADMAMWWP 13:21
PROVIDERS: ATTEND Family Medicine
CPT/HCPCS: 77061; 77065